=== PATIENT | female | born 1980 | race Caucasian/White ===

== ENCOUNTER 2019-11-02 15:50 | Observation (INO) | payer BC ==
[2019-11-02] MEDS ORDERED: Acetaminophen 325 MG Tab PO PRN (16:30)
[2019-11-02] MEDS ORDERED: Sodium Chloride 0.9% 10 ML Syringe FLUSH PRN (16:30)
[2019-11-02 17:21] LABS: ANION GAP 14.7 mmol/L (5-15); CHLORIDE,CL 104 mmol/L (98-115); SODIUM,NA 143 mmol/L (136-145)
[2019-11-02] MEDS: Albuterol 8 GM Inhaler INH SCH ×2 (17:29→21:00)
--- NOTE | 2019-11-02 17:45 | CR ---
[id number] RAD/RAD Chest PA or AP 1V EXAM: FRONTAL CHEST INDICATION: SHORTNESS OF BREATH, RULE OUT PNEUMONIA. COMPARISON: None. DISCUSSION: Linear scarring or atelectasis in the left midlung. Minor bibasilar opacities could represent atelectasis or early infiltrates. Normal heart size. IMPRESSION: 1. Mild bibasilar atelectasis and/or infiltrates. Wei Cazares MD 11/02/19 0097 Thank you for allowing us to participate in the care of your patient.
[2019-11-02] MEDS: Sodium Chloride 0.9% 1,000 ML IV SCH (17:47)
[2019-11-02] MEDS ORDERED: Levofloxacin/Dextrose 5%-Water 250 MG in Premix Bag 1 BAG IV SCH (19:00)
[2019-11-02] MEDS ORDERED: Levofloxacin/Dextrose 5%-Water 500 MG in Premix Bag 1 BAG IV SCH (20:00)
[2019-11-02] MEDS: Levofloxacin/Dextrose 5%-Water 250 MG in Premix Bag 1 BAG IV SCH (20:43)
[2019-11-02] MEDS: Gabapentin 300 MG Cap PO SCH (20:45)
[2019-11-02] MEDS: Acetaminophen 325 MG Tab PO PRN (20:59)
[2019-11-02] MEDS: Levofloxacin/Dextrose 5%-Water 500 MG in Premix Bag 1 BAG IV SCH (22:07)
[2019-11-03] MEDS: Albuterol 8 GM Inhaler INH SCH ×6 (01:41→21:37)
[2019-11-03] MEDS: Acetaminophen 325 MG Tab PO PRN ×2 (03:19→09:28)
[2019-11-03] MEDS: Gabapentin 300 MG Cap PO SCH ×2 (08:18→21:33)
[2019-11-03] MEDS: Sodium Chloride 0.9% 1,000 ML IV SCH (09:33)
--- NOTE | 2019-11-03 11:48 | PCM.PN ---
- General Info Date of Service: 11/03/19 Functional Status: Reports: New Symptoms (Left-sided chest wall pain under ribs upon coughing). Denies: Pain Controlled - Review of Systems General: Denies: Fever, Weakness, Chills, Night Sweats HEENT: Reports: Post Nasal Drip, Sinus Congestion, Sore Throat, Other ( Hoarseness). Denies: Ear Pain Pulmonary: Reports: Cough (Thickened cough). Denies: Shortness of Breath Cardiovascular: Reports: Chest Pain, Dyspnea on Exertion. Denies: Orthopnea, PND, Edema Gastrointestinal: Reports: No Symptoms Genitourinary: Reports: No Symptoms Musculoskeletal: Reports: Other (Left-sided chest wall pain reproducible) Skin: Denies: Rash Neurological: Reports: No Symptoms Psychiatric: Reports: Anxiety - Patient Data Vitals - Most Recent: Last Vital Signs Temp 97.6 F 11/03/19 05:40 Pulse 77 11/03/19 05:40 Resp 26 H 11/03/19 09:35 BP 105/65 11/03/19 05:40 Pulse Ox 96 11/03/19 09:35 Weight - Most Recent: 215 lb I&O - Last 24 Hours: Intake & Output 11/02/19 11/03/19 11/03/19 22:59 06:59 14:59 Intake Total 803 1442 Balance 803 1442 Lab Results Last 24 Hours: Laboratory Results - last 24 hr 11/02/19 11/02/19 11/03/19 Range/Units 16:50 16:50 07:00 WBC 15.63 H 13.09 H (5.00-10.00) 10^3/uL RBC 4.81 4.49 (3.80-5.50) 10^6/uL Hgb 14.1 13.0 (12.0-16.0) g/dL Hct 42.2 40.6 (37.0-47.0) % MCV 87.7 90.4 (82.0-92.0) fL MCH 29.3 29.0 (27.0-31.0) pg MCHC 33.4 32.0 (32.0-36.0) g/dL RDW 12.1 12.3 (11.5-14.5) % Plt Count 348 294 (150-400) 10^3/uL MPV 10.9 H 10.9 H (7.4-10.4) fL Immature Gran % (Auto) 0.6 0.9 (0.0-5.0) % Neut % (Auto) 80.8 H 70.0 (50.0-70.0) % Lymph % (Auto) 12.9 L 22.0 (20.0-40.0) % Taney % (Auto) 5.4 6.5 (2.0-8.0) % Eos % (Auto) 0.1 L 0.4 L (1.0-3.0) % Baso % (Auto) 0.2 0.2 (0.0-1.0) % Immature Gran # (Auto) 0.09 0.12 (0.00-0.50) 10^3/uL Neut # (Auto) 12.65 H 9.16 H (2.50-7.00) 10^3/uL Lymph # (Auto) 2.01 2.88 (1.00-4.00) 10^3/uL Taney # (Auto) 0.84 H 0.85 H (0.10-0.80) 10^3/uL Eos # (Auto) 0.01 L 0.05 L (0.10-0.30) 10^3/uL Baso # (Auto) 0.03 0.03 (0.00-0.10) 10^3/uL Sodium 143 (136-145) mmol/L Potassium 4.0 (3.3-5.3) mmol/L Chloride 104 (98-115) mmol/L Carbon Dioxide 28.3 (21.0-32.0) mmol/L Anion Gap 14.7 (5-15) mmol/L BUN 7 (6-25) mg/dL Creatinine 0.67 (0.51-1.17) mg/dL Est Cr Clr Drug Dosing TNP Estimated GFR (MDRD) > 60 mL/min Glucose 98 (75 - 99) mg/dL Calcium 8.8 (8.7-10.3) mg/dL Med Orders - Current: Current Medications Acetaminophen (Tylenol) 650 mg PO Q6H PRN PRN Reason: Pain/Fever Last Admin: 11/03/19 09:28 Dose: 650 mg Albuterol (Ventolin Hfa) 0 gm INH Q4H [facility] Last Admin: 11/03/19 08:18 Dose: 2 puff Gabapentin (Neurontin) 300 mg PO BID [facility] Last Admin: 11/03/19 08:18 Dose: 300 mg Sodium Chloride (Normal Saline) 1,000 mls @ 75 mls/hr IV ASDIRECTED [facility] Last Admin: 11/03/19 09:33 Dose: 75 mls/hr Levofloxacin/Dextrose 250 mg/ (Premix) 50 mls @ 50 mls/hr IV Q24H [facility] Last Admin: 11/02/19 20:43 Dose: 50 mls/hr Levofloxacin/Dextrose 500 mg/ (Premix) 100 mls @ 100 mls/hr IV Q24H [facility] Last Admin: 11/02/19 22:07 Dose: 100 mls/hr Sodium Chloride (Saline Flush) 10 ml FLUSH Q8HR PRN PRN Reason: keep vein open Discontinued Medications Acetaminophen (Tylenol) 1,000 mg PO Q6H PRN PRN Reason: Pain (Mild 1-3)/fever Levofloxacin/Dextrose 250 mg/ (Premix) 50 mls @ 50 mls/hr IV Q24H [facility] Last Admin: 11/02/19 20:22 Dose: Not Given Levofloxacin/Dextrose 500 mg/ (Premix) 100 mls @ 100 mls/hr IV Q24H [facility] - Exam Quality Assessment: Supplemental Oxygen General: Mild Distress Neck: Supple Lungs: Decreased Breath Sounds (Lightly diminished left side), Rhonchi Cardiovascular: Regular Rate, Regular Rhythm, No Murmurs GI/Abdominal Exam: Normal Bowel Sounds, Soft, Non-Tender, No Distention, Other ( Large body habitus) (Female) Exam: Deferred Back Exam: No: CVA Tenderness (L), CVA Tenderness (R) Extremities: Non-Tender. No: Pedal Edema Peripheral Pulses: 2+: Radial (L), Radial (R) Skin: Warm, Dry, Intact Neurological: Cranial Nerves Intact Psy/Mental Status: Alert, Normal Affect, Normal Mood Sepsis Event Note - Evaluation Sepsis Screening Result: Sepsis Risk - Focused Exam Vital Signs: Vital Signs Temp Pulse Resp BP Pulse Ox 11/03/19 09:35 26 H 96 11/03/19 09:30 26 H 88 L 11/03/19 05:40 97.6 F 77 20 105/65 91 L 11/03/19 01:43 97.0 F 84 20 109/66 91 L Date Exam was Performed: 11/03/19 Time Exam was Performed: 11:49 - Problem List Review Problem List Initiated/Reviewed/Updated: Yes - My Orders Last 24 Hours: My Active Orders 11/02/19 17:15 RT Post Treatment Assessment [RC] Click to Edit RT Pre-Treatment Assessment [RC] Click to Edit Albuterol [Ventolin HFA] See Dose Instructions INH Q4H 11/02/19 19:00 ARIPiprazole [Abilify] DOSE UNIT RTE FREQ 11/02/19 19:19 RT Incentive Spirometry [RC] Q1HWA 11/02/19 20:00 Levofloxacin/Dextrose 5%-Water [Levaquin in D5W 250 MG/50 ML] 250 mg Premix Bag 1 bag IV Q24H 11/02/19 21:00 Gabapentin [Neurontin] 300 mg PO BID Levofloxacin/Dextrose 5%-Water [Levaquin in D5W 500 MG/100 ML] 500 mg Premix Bag 1 bag IV Q24H - Plan Plan:: History summary 39yr female morbidly obese patient was admitted into observation by Sravani Camarena [employer] SWEEPER due to shortness of breath, fever, ongoing cough with suspected pneumonia component[facility] diagnosed with acute viral bronchitis was treated with steroids along with albuterol nebs however the patient reported ongoing symptoms. Her work-up that day included a chest x-ray which demonstrated atelectasis however no infiltrates, non-concerning inflammatory markers with negative influenza A/B. Was evaluated yesterday she had significant cough, nasal congestion, low-grade temp, chest tightness, shortness of breath, along with significant hoarseness. Patient's mother who has a history of COPD evaluated in the ED shortly the same day with fever, shortness of breath COPD exacerbation along with bilateral pneumonia. Patient's mother was tested for Corvid-19 virus and was placed in isolation. Patient denies traveled to a high risk country and has no underlying pulmonary disease. Pertinent work-up Chest x-ray, plexuses, bibasilar opacities suspect early infiltrates. WBC, 15,000, neutrophils 81% Corvid-19 testing pending Overnight: No overnight calls, patient slept on and off, no fever, some improvement in inflammatory markers however new symptoms of chest wall pain under left breast, significant cough with some sputum production now. Requiring low-dose oxygen at this time. Primary hospital problems --Pneumonia, CAP, Some clinical improvement, low threshold for atypical however will assess --Anxiety/Dysthymic disorder/Major depressive disorder/stable on monotherapy Abilify, --Nicotine dependency, refusing NRT, assessed readiness to quit, contemplating, contributable, co-morbid Disposition/overall plan --24 more hours observation could benefit --Cont Ventolin scheduled --Continue antibiotics --Guaifenesin for cough --Urine Legionella --Chest wall splinting --Low Dose hydrocodone for chest wall pain, Lidoderm patch --In light of her Chest wall pain, reduce ICS to 5x per hour --Ambulation in room, SCD's
[2019-11-03] MEDS: guaiFENesin/Dextromethorphan 100-10 MG/5 ML Soln 5 ML Cup PO SCH ×2 (12:27→18:05)
[2019-11-03] MEDS: Lidocaine 5% 700 MG Patch TOP SCH (12:36)
[2019-11-03] MEDS: Acetaminophen/HYDROcodone 325-5 MG Tab PO PRN ×2 (14:53→20:12)
[2019-11-03] MEDS: Levofloxacin/Dextrose 5%-Water 250 MG in Premix Bag 1 BAG IV SCH (20:08)
[2019-11-03] MEDS: Levofloxacin/Dextrose 5%-Water 500 MG in Premix Bag 1 BAG IV SCH (21:35)
[2019-11-04] MEDS: Acetaminophen/HYDROcodone 325-5 MG Tab PO PRN ×2 (01:19→05:33)
[2019-11-04] MEDS: guaiFENesin/Dextromethorphan 100-10 MG/5 ML Soln 5 ML Cup PO SCH ×3 (01:20→13:03)
[2019-11-04] MEDS: Albuterol 8 GM Inhaler INH SCH ×4 (01:21→15:27)
[2019-11-04] MEDS: Sodium Chloride 0.9% 1,000 ML IV SCH (01:30)
[2019-11-04] MEDS: Gabapentin 300 MG Cap PO SCH (08:06)
[2019-11-04] MEDS: Lidocaine 5% 700 MG Patch TOP SCH (08:06)
[2019-11-04] MEDS ORDERED: Levofloxacin 500 MG Tab PO ONE (10:02)
--- NOTE | 2019-11-04 10:43 | PCM.DCSUM1 ---
Discharge Summary - Hospital Course Diagnosis: Stroke: No - Discharge Data Discharge Date: 11/04/19 Discharge Disposition: Home, Self-Care 01 Condition: Fair - Referral to Home Health Primary Care Physician: PCP Not In Area - Patient Instructions Diet: Usual Diet as Tolerated, Drink 8-10+ Glasses/Day Activity: Cough & Deep Breathe, No Lifting Over 25 Pounds, No Strenuous Activities Showering/Bathing: May Shower Notify Provider of: Fever Other/Special Instructions: Notify of any fever greater than 101. Stay well- hydrated, drink plenty of water. Take your antibiotic that [facility]. 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 Splint your chest wall while coughing to help relieve the pain. Stay home, avoid contact with others, stay at least 6 feet away from others. Cover your cough,. You will need a follow-up appointment early this week at [facility] however until your testing comes back stay at home. A phone nurse will call you tomorrow for further instructions. - Discharge Plan *PRESCRIPTION DRUG MONITORING PROGRAM REVIEWED*: Not Applicable *COPY OF PRESCRIPTION DRUG MONITORING REPORT IN PATIENT MARY: Not Applicable Prescriptions/Med Rec: Dextromethorphan/guaiFENesin [Robitussin DM] 10 ml PO Q6H #10 cup levoFLOXacin [Levaquin] 750 mg PO DAILY #8 tab Home Medications: Home Meds ARIPiprazole [Abilify] 15 mg PO 11/02/19 [History] Albuterol [Proventil Neb Soln] 2.5 mg NEB Q4HR 11/02/19 [History] Gabapentin [Neurontin] 300 mg PO BID 11/02/19 [History] Dextromethorphan/guaiFENesin [Robitussin DM] 10 ml PO Q6H #10 cup 11/04/19 [Rx] levoFLOXacin [Levaquin] 750 mg PO DAILY #8 tab 11/04/19 [Rx] - Discharge Summary/Plan Comment DC Time >30 min.: Yes Discharge Summary/Plan Comment: Final Dx --Pneumonia, community-acquired, --Rule out Corivid 19; patient's contact rule out however patient still pending --Rheumatoid arthritis, Enbrel was held during her hospital stay (patient had been holding it prehospitalization due to acute illness for several days) --Tobacco dependency, ongoing education, now contemplating on quitting however refusing in RT --Obesity History summary 39yr female morbidly obese patient was admitted into observation by Sravani Camarena NP due to shortness of breath, fever, ongoing cough with suspected pneumonia component[facility] diagnosed with acute viral bronchitis was treated with steroids along with albuterol nebs however the patient reported ongoing symptoms. Her work-up that day included a chest x-ray which demonstrated atelectasis however no infiltrates, non-concerning inflammatory markers with negative influenza A/B. Was evaluated yesterday she had significant cough, nasal congestion, low-grade temp, chest tightness, shortness of breath, along with significant hoarseness. Patient's mother who has a history of COPD evaluated in the ED shortly the same day with fever, shortness of breath COPD exacerbation along with bilateral pneumonia. Patient's mother was tested for Corvid-19 virus and was placed in isolation. Patient denies traveled to a high risk country and has no underlying pulmonary disease. Pertinent work-up Chest x-ray, bibasilar opacities suspect early infiltrates. WBC, 15,000, neutrophils 81% Corvid-19 testing sent out Hospital course Went fairly well without any major concerns. First night there was patient slept on and off, no fever, laboratory markers continue to trend down with no neutrophilia upon discharge. Electrolytes normal, tolerated her fluids, no nausea vomiting no diarrhea. Was given Ventolin did help her on her shortness of breath however guaifenesin dramatically improved her cough. She used her incentive spirometer, she was well-hydrated, due to her first day of persistent nonstop coughing urine Legionella was collected pending upon discharge, she was given Levaquin for her pneumonia. Chest wall splinting was provided as she did have left-sided under her breasts chest wall pain that seem to be increased on reproduction and coughing. Due to her significant coughing, recently and pneumonia she did require low-dose oxygen however she was titrated to room air and her oxygen saturations were adequate. Given low-dose hydrocodone for chest wall pain along with Lidoderm patch which she stated seemed to work the best. She was placed in and remained in Corvid-19 cautions however her mother who was a suspected contact was tested negative. Enbrel was held during her hospital stay (patient had been holding it prehospitalization due to acute illness for several days). She was given extensive education regarding tobacco cessation and leaking current illness with exacerbation and complication. now contemplating on quitting however refused NRT on DC. Medication changes/adjustments upon discharge --Levaquin 750 mg p.o. 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 A phone nurse will call you tomorrow for further instructions. Recommendations at follow-up --Motivational interviewing concerning tobacco cessation counseling, She was given extensive education regarding tobacco cessation and linking current illness with exacerbation and complication. now contemplating on quitting however refused NRT on DC --Follow-up on hospital labs including urine Legionella --Decision date to start back on Enbrel - General Info Functional Status: Reports: Pain Controlled, Tolerating Diet, Urinating, Incentive Spirometry. Denies: Ambulating, New Symptoms - Review of Systems General: Reports: No Symptoms HEENT: Reports: Post Nasal Drip Pulmonary: Reports: Cough (Much improved cough). Denies: Shortness of Breath Cardiovascular: Reports: No Symptoms Gastrointestinal: Reports: No Symptoms Genitourinary: Reports: No Symptoms Musculoskeletal: Reports: Other (Improved chest wall pain) Neurological: Reports: No Symptoms Psychiatric: Reports: Anxiety. Denies: Confusion, Depression, Mood Lability, Agitation - Patient Data Vitals - Most Recent: Last Vital Signs Temp 96.6 F L 11/04/19 05:36 Pulse 66 11/04/19 05:36 Resp 24 H 11/04/19 05:36 BP 106/67 11/04/19 05:36 Pulse Ox 96 11/04/19 05:36 Weight - Most Recent: 215 lb I&O - Last 24 hours: Intake & Output 11/03/19 11/04/19 11/04/19 22:59 06:59 14:59 Intake Total 965 9 Balance 965 9 Lab Results - Last 24 hrs: Laboratory Results - last 24 hr 11/04/19 Range/Units 05:45 WBC 11.47 H (5.00-10.00) 10^3/uL RBC 4.21 (3.80-5.50) 10^6/uL Hgb 12.1 (12.0-16.0) g/dL Hct 38.0 (37.0-47.0) % MCV 90.3 (82.0-92.0) fL MCH 28.7 (27.0-31.0) pg MCHC 31.8 L (32.0-36.0) g/dL RDW 12.2 (11.5-14.5) % Plt Count 272 (150-400) 10^3/uL MPV 10.8 H (7.4-10.4) fL Immature Gran % (Auto) 1.5 (0.0-5.0) % Neut % (Auto) 63.1 (50.0-70.0) % Lymph % (Auto) 27.6 (20.0-40.0) % Ray % (Auto) 5.2 (2.0-8.0) % Eos % (Auto) 2.5 (1.0-3.0) % Baso % (Auto) 0.1 (0.0-1.0) % Immature Gran # (Auto) 0.17 (0.00-0.50) 10^3/uL Neut # (Auto) 7.24 H (2.50-7.00) 10^3/uL Lymph # (Auto) 3.16 (1.00-4.00) 10^3/uL Ray # (Auto) 0.60 (0.10-0.80) 10^3/uL Eos # (Auto) 0.29 (0.10-0.30) 10^3/uL Baso # (Auto) 0.01 (0.00-0.10) 10^3/uL Med Orders - Current: Current Medications Acetaminophen (Tylenol) 650 mg PO Q6H PRN PRN Reason: Pain/Fever Last Admin: 11/03/19 09:28 Dose: 650 mg Hydrocodone Bitart/Acetaminophen (Clio 325-5 Mg) 1 tab PO Q4H PRN PRN Reason: Pain Last Admin: 11/04/19 05:33 Dose: 1 tab Albuterol (Ventolin Hfa) 0 gm INH Q4H [facility] Last Admin: 11/04/19 08:15 Dose: 2 puff Gabapentin (Neurontin) 300 mg PO BID [facility] Last Admin: 11/04/19 08:06 Dose: 300 mg Guaifenesin/Phenylephrine HCl (Robitussin Dm) 10 ml PO Q6H [facility] Last Admin: 11/04/19 05:34 Dose: 10 ml Sodium Chloride (Normal Saline) 1,000 mls @ 75 mls/hr IV ASDIRECTED [facility] Last Admin: 11/04/19 01:30 Dose: 75 mls/hr Lidocaine (Lidoderm 5%) 700 mg TOP DAILY [facility] Last Admin: 11/04/19 08:06 Dose: 700 mg Miscellaneous Information (Remove Patch) 1 ea TRDERM BEDTIME [facility] Last Admin: 11/03/19 21:32 Dose: 1 ea Sodium Chloride (Saline Flush) 10 ml FLUSH Q8HR PRN PRN Reason: keep vein open Discontinued Medications Acetaminophen (Tylenol) 1,000 mg PO Q6H PRN PRN Reason: Pain (Mild 1-3)/fever Levofloxacin/Dextrose 250 mg/ (Premix) 50 mls @ 50 mls/hr IV Q24H [facility] Last Admin: 11/02/19 20:22 Dose: Not Given Levofloxacin/Dextrose 500 mg/ (Premix) 100 mls @ 100 mls/hr IV Q24H [facility] Levofloxacin/Dextrose 250 mg/ (Premix) 50 mls @ 50 mls/hr IV Q24H [facility] Last Admin: 11/03/19 20:08 Dose: 50 mls/hr Levofloxacin/Dextrose 500 mg/ (Premix) 100 mls @ 100 mls/hr IV Q24H [facility] Last Admin: 11/03/19 21:35 Dose: 100 mls/hr Levofloxacin (Levaquin) 750 mg PO ONETIME ONE Stop: 11/04/19 10:03 Senna/Docusate Sodium (Senna Plus) 1 tab PO ONETIME ONE Stop: 11/03/19 21:01 Last Admin: 11/03/19 21:33 Dose: 1 tab - Exam Quality Assessment: Denies: Supplemental Oxygen General: Reports: Alert, Oriented, Cooperative, No Acute Distress Neck: Reports: No JVD Lungs: Reports: Rhonchi GI/Abdominal Exam: Normal Bowel Sounds, Soft Back Exam: Denies: CVA Tenderness (R) Extremities: No Pedal Edema Skin: Reports: Warm, Dry, Intact Psy/Mental Status: Reports: Alert, Normal Affect, Normal Mood
[2019-11-04] MEDS ORDERED: Levofloxacin 500 MG Tab ONE (12:58)
== END 2019-11-04 13:05 | disposition home or self-care (01) ==
LOC: KA.MS 15:50
PROVIDERS: ADMIT Nurse Practitioner Family; ATTEND Nurse Practitioner Family
DX: J18.9 Pneumonia, unspecified organism (principal); M06.9 Rheumatoid arthritis, unspecified; F17.210 Nicotine dependence, cigarettes, uncomplicated; E66.01 Morbid (severe) obesity due to excess calories; J98.11 Atelectasis; F41.9 Anxiety disorder, unspecified; F34.1 Dysthymic disorder; F33.3 Major depressive disorder, recurrent, severe with psychotic symptoms; Z68.37 Body mass index [BMI] 37.0-37.9, adult; Z79.899 Other long term (current) drug therapy
CPT/HCPCS: 36415; 71045; 80048; 85025; 87070; 87205; 87899; 96365; 96366; A9270-GY; G0378; J1956; J7030